=== PATIENT | female | born 1955 | race Caucasian/White ===

== ENCOUNTER 2025-07-14 10:08 | Emergency (ER) | payer MEDICARE, OTHER, SELFPAY ==
[2025-07-14 10:14] VITALS: BP 97/66
--- NOTE | 2025-07-14 10:57 | ED.GENMED ---
History of Present Illness
General
Chief Complaint: Abdominal Symptoms
Source: patient
Exam Limitations: none
Time Seen by Provider: 07/14/25 10:51
History of Present Illness
History of Present Illness:
See MDM
Past History
Past History
ED Past Medical History: None
ED Past Surgical History: None
Social History
Tobacco: Non-smoker
Alcohol: None
Phy Exam
Physical Exam
Physical Exam:
See MDM
Course
Orders/Labs/Results
Orders:
Orders
07/14/25 10:55
CT Abd/pelvis W Iv Cont Urgent
Comment:
Reason For Exam: low abd pain and diarrhea
07/14/25 11:04
Complete Blood Count/With Diff Urgent
Comprehensive Metabolic Panel Urgent
Lipase Urgent
07/14/25 15:14
Amoxicillin 875 mg/Clav 125 mg [Augmentin 875 mg/125 mg] 1 tablet PO NOW STA
Abnormal Lab Results
07/14/25
11:04
Absolute Neuts (auto) 6.8 H 10^3/uL
(1.4-6.5)
Absolute Lymphs (auto) 0.8 L 10^3/uL
(1.2-3.4)
Absolute Monos (auto) 1.2 H 10^3/uL
(0.1-0.6)
Neutrophils % 76.7 H %
(42.2-75.2)
Lymphocytes % 8.5 L %
(20.5-51.1)
Monocytes % 13.5 H %
(1.7-9.3)
Sodium 129 L mmol/L
(135-145)
Glucose 114 H mg/dl
(70-99)
07/14/25 11:04
07/14/25 11:04
Vital Signs
Initial and Last Documented VS:
Initial Vital Signs
Temp Pulse Resp BP Pulse Ox
98.4 F 96 20 97/66 96
07/14/25 10:14 07/14/25 10:14 07/14/25 10:14 07/14/25 10:14 07/14/25 10:14
Last Documented Vital Signs
Temp Pulse Resp BP Pulse Ox
98.4 F 84 14 100/61 96
07/14/25 10:14 07/14/25 14:41 07/14/25 14:41 07/14/25 14:41 07/14/25 14:41
MDM/Problems Addressed
Differential Diagnosis Includes:
Note:
CHIEF COMPLAINT(S)
Diarrhea and abdominal pain.
HISTORY OF PRESENT ILLNESS
The patient is a 69-year-old female presenting with diarrhea and abdominal pain onset on Sunday. The patient reports that the symptoms began with bloating discomfort and have progressed to definite pain in the abdomen. She describes the sensation as
if something is moving but then not moving properly. The symptoms were initially mild but have become more severe since Sunday night. The patient tried yicy-izp-ctlcowe treatments such as bismuth subsalicylate and loperamide with limited and
temporary relief. She reports experiencing an increase in bowel movements shortly after taking loperamide. The patient has also been experiencing very little sleep due to discomfort. She has no previous surgeries or diagnosed conditions such as
diverticulitis. There is no recent antibiotic use. The patient appears mildly dehydrated.
PHYSICAL EXAM
General: Alert, no acute distress.
Skin: Warm, dry.
Head: Normocephalic, atraumatic
Neck: Appears supple, trachea midline.
Eyes, Ears, Nose, Mouth, and Throat: Dry mucous membranes
Cardiovascular: No signs of cyanosis
Respiratory: Respirations are non-labored.
Abdomen: Non-distended. Mild left lower quadrant tenderness without rebound
Musculoskeletal: No deformities
Neurological: No focal neurological deficit observed.
Psychiatric: Cooperative, appropriate mood and affect.
PLAN
The plan includes conducting blood tests, providing intravenous fluids for dehydration, and obtaining a stool sample to check for bacterial or viral pathogens. A computed tomography (CT) scan will be performed to check for suspected diverticulitis
or other underlying conditions. If the tests rule out any significant issues and the condition is deemed treatable, discharge will be considered with relevant treatment options discussed.
DIFFERENTIAL DIAGNOSIS
The Differential Diagnosis includes, in no particular order and is not limited to:
- Infectious gastroenteritis
- Diverticulitis
- Inflammatory bowel disease
- Irritable bowel syndrome
- Ischemic colitis
- Medication-induced diarrhea
- Clostridium difficile infection
- Viral gastroenteritis
- Lactose intolerance
- Small bowel obstruction
SUMMARY OF ENCOUNTER
The patient presented with a several-day history of diarrhea and abdominal pain unresponsive to syer-gyt-gglxktc medication. Given the patients mild dehydration and distress, the plan involves bloodwork, fluid resuscitation, stool sample analysis,
and a CT scan to rule out significant gastrointestinal conditions such as diverticulitis or infectious causes. The results will guide further management or discharge with appropriate treatment.
MEDICAL DECISION MAKING
Chronic conditions affecting care: None mentioned.
-Data:
Category 1: Tests and documents to be reviewed include stool sample analysis, bloodwork for electrolyte levels, and CT scan results.
Category 3: Discussion with the patient regarding the potential causes of symptoms and the rationale for the chosen diagnostic investigations.
-Risk:
Prescription medication was considered, but ultimately, further management relies upon diagnosis confirmation after the CT scan and stool sample analysis. Recommendations for outpatient management may occur if test results and the patient�s
condition allow for safe discharge.
DIAGNOSIS
1. Infectious gastroenteritis (A09)
2. Possible diverticulitis (K57.9)
SUMMARY OF ENCOUNTER
The patient, a 69-year-old female, presented to the emergency department with diarrhea and abdominal pain persisting for several days, unresponsive to zzbj-snm-mozrduc medications. She also reported dehydration and mild distress. Management included
the administration of intravenous fluids, after which the patient reported feeling better. A computed tomography (CT) scan was performed, revealing pancolitis. Although a stool specimen was not obtained, the likelihood of a Clostridium difficile
infection was reduced, and the symptoms were treated as likely infectious in nature. The patient was started on amoxicillin/clavulanate (Augmentin) for empirical treatment.
PLAN
Initiate treatment with amoxicillin/clavulanate (Augmentin) for suspected infectious etiology. Ensure patient understands the need for strict return precautions, advising immediate return if symptoms such as worsening pain, diarrhea, or fever occur.
INDEPENDENT REVIEW OF LABS AND INTERPRETATION OF TESTS
My independent review of the electrolyte panel indicates a mildly low sodium level of 129 mmol/L, likely related to dehydration and diarrhea. My independent interpretation of the CT scan indicates concern for pancolitis.
PATIENT EDUCATION AND COUNSELING
The patient was counseled on the importance of monitoring for worsening symptoms and advised to return if she experiences increased pain, diarrhea, or develops fevers.
MEDICATION RECONCILIATION
The patient was administered intravenous fluids in the emergency department and prescribed amoxicillin/clavulanate (Augmentin) for an infectious cause.
MEDICAL DECISION MAKING
-Complexity of Data Reviewed: DDx includes infectious gastroenteritis, diverticulitis, inflammatory bowel disease, irritable bowel syndrome, ischemic colitis, medication-induced diarrhea, Clostridium difficile infection, viral gastroenteritis,
lactose intolerance, and small bowel obstruction.
-Data:
Category 1: My independent review of the electrolyte panel indicates a mildly low sodium level of 129 mmol/L. My independent interpretation of the CT scan indicates concern for pancolitis.
-Risk: Consideration of Admission/Observation: Escalation of care including admission/observation was considered given the complexity and risk of the patients presenting complaint, exam findings, and/or their underlying comorbidities. However,
ultimately I feel the patient is safe for outpatient management with close follow-up. Reasoning: Work-up reassuring, does not reveal any acute life/organ-threatening processes, patients symptoms well controlled upon reevaluation, reexamination is
reassuring, vitals are stable, patient agreeable with discharge, reliable for follow-up.
DIAGNOSIS
1. Infectious gastroenteritis (A09)
2. Pancolitis (K52.9)
*Pulse Oximetry
SaO2: 96
Oxygen Mode of Delivery: Room air
Patient hypoxic: no
*Critical Care Note
Total Time (30-74mins, 75-104mins- exclusive of procedures): Not Applicable
ED Attending Note
-
Portions of this chart may have been created with voice recognition software.� Occasional wrong word or��sound alike� substitutions may have occurred due to the inherent limitations of voice recognition software.
Discharge Plan
Departure
Patient Disposition: Home (Routine Discharge)
Date of Disposition: 07/14/25
Time of Disposition: 15:18
Patient with high blood pressure during this ER visit?: No
Discharge Problem:
Pancolitis
Instructions: Colitis
Prescriptions:
New
amoxicillin-pot clavulanate 875-125 mg tablet
1 tab PO BID Qty: 14 0RF
Referrals:
Ro Gonzalez CRNP [Family Provider, General]
Activity Restrictions/Additional Instructions:
Please return for any worsening symptoms.
You may return at any time if you have further concerns.
Please follow up with your doctor at the first available appointment, preferably this week.
Thank you for choosing [facility].
Interventions
Interventions:
*Risk Screen - Suicide Last Done: 07/14/25 10:14
*General Assessment Last Done: 07/14/25 10:14
*ED- Fall Risk Assessment Last Done: 07/14/25 15:15
*ED COVID-19 Vaccine History Last Done: 07/14/25 15:15
*ED Influenza Vaccine History Last Done: 07/14/25 15:15
YI-Grfuui-Mbhzeoikin Assessment Last Done: 07/14/25 11:10
Discharge Date and Time
Print Language: ARMENIAN
[2025-07-14 11:10] VITALS: BMI 25.0
[2025-07-14 11:20] LABS: Hematocrit 37.1 % (37.0-47.0); Hemoglobin 12.7 g/dL (12.0-16.0); Mean Corp Hgb Conc. 34.2 g/dL (33.0-37.0); Mean Corpuscular Volume 85.5 fL (81.0-99.0); Nucleated Red Blood Cells % 0 %; Platelet Count 291 10^3/uL (130-400); Red Cell Dist. Width 12.8 % (11.5-14.5)
[2025-07-14 11:34] LABS: ALT (SGPT) 19 U/L (0-35); AST (SGOT) 20 U/L (14-36); Albumin 3.8 g/dl (3.5-5.0); Alkaline Phosphatase 68 U/L (38-126); Blood Urea Nitrogen 16 mg/dl (7-17); Calcium 8.8 mg/dl (8.4-10.2); Carbon Dioxide 25 mmol/L (22-30); Chloride 102 mmol/L (98-107); Estimated Creatinine Clearance 57 ml/min; Glucose 114 mg/dl (70-99); Lipase 69 U/L (23-300); Potassium 3.7 mmol/L (3.5-5.1); Sodium 129 mmol/L (135-145); Total Protein 6.5 g/dl (6.3-8.2); eGFR > 60.00
[2025-07-14 14:41] VITALS: BP 100/61
[2025-07-14] MEDS: AUGMENTIN 875 MG/125 MG 1 TABLET PO (15:19)
[2025-07-14 15:23] VITALS: BP 99/62
== END 2025-07-14 15:45 | disposition home or self-care (01) ==
LOC: EMR 10:08
PROVIDERS: EMERGENCY PHYSICIAN Student in an Organized Health Care Education/Training Program; FAMILY PHYSICIAN Nurse Practitioner Adult Health
DX: K52.9 Noninfective gastroenteritis and colitis, unspecified (principal); E86.0 Dehydration
CPT/HCPCS: 99284; 74177; 80053; 83690; 85025; Q9967